=== PATIENT | female | born 1980 | race Caucasian/White ===

== ENCOUNTER 2025-06-02 14:00 | Day surgery (SDC) | payer OTHER ==
[2025-06-02 13:23] LABS: BASO % 0.3 % (0.1-1.2); EOS # 0.03 (0.04-0.54); EOS % 0.3 % (0.7-7.0); LYMPH # 1.38 (1.18-3.74); LYMPH % 15.0 % (19.3-53.1); MEAN PLATELET VOLUME 12.00 fl (9.4-12.4); MONO # 0.58 (0.24-0.82); MONO % 6.3 % (4.7-12.5); NEUT # 7.12 (1.56-6.13); NEUT % 77.7 % (34.0-71.1); RED CELL DISTRIBUTION WIDTH 12.4 % (11.6-14.4)
[2025-06-02 13:43] LABS: INR 1.0
[2025-06-02 15:08] LABS: RH POSITIVE
[2025-06-02] MEDS ORDERED: CEFOXITIN SODIUM 2,000 MG VIAL IV ONE (17:27)
[2025-06-02] MEDS ORDERED: POVIDONE-IODINE 118 ML BOTT TOP ONE (17:29)
[2025-06-02] MEDS ORDERED: MORPHINE SULFATE 4 MG/ML VIAL IV PRN (18:30)
[2025-06-02] MEDS ORDERED: PROMETHAZINE HCL 50 MG/ML AMPUL IM ONE (18:30)
== END 2025-06-02 21:30 | disposition home or self-care (01) ==
LOC: CIR.AMB 14:00
PROVIDERS: ATTEND Obstetrics & Gynecology Maternal & Fetal Medicine
DX: O02.1 Missed abortion (principal)